=== PATIENT | male | born 1950 | race Caucasian/White ===

== ENCOUNTER 2019-12-19 07:00 | Inpatient (IN) | payer OTHER ==
[~2019-12-19] VITALS: Ht 188 cm; Wt 129.3 kg
[2019-12-19] MEDS ORDERED: CEFAZOLIN 1 GM IVPB PREMIX 50 ML IV ONE (07:45)
[2019-12-19] MEDS ORDERED: LISI-209 PO (08:54)
[2019-12-19] MEDS ORDERED: RIVA20TA PO (08:54)
[2019-12-19] MEDS ORDERED: CARV12.548 PO (08:54)
[2019-12-19] MEDS ORDERED: POLYMYXIN 500,000/BACIT.10,000 UNITS in NS IRR 1 L IR ONE (10:36)
[2019-12-19] MEDS ORDERED: LR 1,000 ML IV ONE (12:27)
[2019-12-19] MEDS ORDERED: HYDROmorphone 1 MG INJ. 1 MG/ML AMPUL IVP PRN ×2 (12:30→12:45)
[2019-12-19] MEDS ORDERED: MORPHINE 4 MG/ML INJ. SYRINGE IVP PRN (12:30)
[2019-12-19] MEDS ORDERED: ONDANSETRON HCL 4 MG/2 ML VIAL IVP PRN (12:30)
[2019-12-19] MEDS ORDERED: MIDAZOLAM HCL 5 MG/5 ML VIAL IVP PRN (12:30)
[2019-12-19] MEDS ORDERED: KETOROLAC TROMETHAMINE 30 MG VIAL IM PRN (12:30)
[2019-12-19] MEDS ORDERED: D5/0.45 NS 1,000 ML IV SCH (12:35)
[2019-12-19] MEDS ORDERED: HYDROcodone/ACETAMIN 5-325 MG TAB (NORCO/ VICODIN) PO PRN ×2 (12:45)
[2019-12-19] MEDS ORDERED: MIDAZOLAM HCL 5 MG/ML VIAL (VERSED) IV ONE (12:57)
[2019-12-19] MEDS ORDERED: SEVOFLURANE 15 MIN GAS INH ONE (12:57)
[2019-12-19] MEDS ORDERED: ONDANSETRON HCL 4 MG/2 ML VIAL ONE (12:57)
[2019-12-19] MEDS ORDERED: GLYCOPYRROLATE 0.2 MG/ML VIAL ONE (12:57)
[2019-12-19] MEDS ORDERED: PROPOFOL 200MG/ 20ML VIAL (DIPRIVAN) IV ONE (12:57)
[2019-12-19] MEDS ORDERED: ROCURONIUM BROMIDE 10 MG/ML (ZEMURON) ONE (12:57)
[2019-12-19] MEDS ORDERED: fentaNYL CITRATE/PF 100 MCG/2 ML AMP ONE (12:57)
[2019-12-19] MEDS ORDERED: LR 1,000 ML IV.SOLN IV ONE (12:57)
[2019-12-19] MEDS ORDERED: CEFAZOLIN 2 GM IVPB PREMIX 50 ML IV ONE (12:57)
[2019-12-19] MEDS ORDERED: PHENYLEPHRINE HCL 10 MG/ML VIAL (NEOSYNEPHRINE) ONE (12:57)
[2019-12-19] MEDS ORDERED: BUPIVACAINE /PF 0.25% 30 ML VIAL INJ ONE (12:57)
[2019-12-19] MEDS ORDERED: SUGAMMADEX SODIUM 200 MG/2 ML VIAL IV ONE (12:57)
[2019-12-19] MEDS ORDERED: HYDROcodone/ACETAMIN 5-325 MG TAB (NORCO/ VICODIN) ONE (14:30)
[2019-12-19 15:07] VITALS: BP_SYST 126
== END 2019-12-19 15:10 | disposition home or self-care (01) | DRG 354 ==
LOC: SMU 07:00 → EDSTATUS 09:15
PROVIDERS: ADMIT Colon & Rectal Surgery; ATTEND Colon & Rectal Surgery
PROC: 0WUF0JZ Supplement Abdominal Wall with Synthetic Substitute, Open Approach (ICD-10-PCS; principal; 2019-12-19 09:30)
DX: K43.6 Other and unspecified ventral hernia with obstruction, without gangrene (principal); I48.19 Other persistent atrial fibrillation; K66.0 Peritoneal adhesions (postprocedural) (postinfection); N18.3 Chronic kidney disease, stage 3 (moderate); I12.9 Hypertensive chronic kidney disease with stage 1 through stage 4 chronic kidney disease, or unspecified chronic kidney disease; K57.30 Diverticulosis of large intestine without perforation or abscess without bleeding; M19.90 Unspecified osteoarthritis, unspecified site; E66.01 Morbid (severe) obesity due to excess calories; E78.5 Hyperlipidemia, unspecified; Z79.899 Other long term (current) drug therapy; Z80.3 Family history of malignant neoplasm of breast; Z82.61 Family history of arthritis; Z68.36 Body mass index [BMI] 36.0-36.9, adult
CPT/HCPCS: 87081; 88302; C1781; C9399; J0690; J2250; J2370; J2405; J2704; J3010; J3490; J7120